=== PATIENT | female | born 1995 | race Caucasian/White ===

== ENCOUNTER 2016-11-24 23:26 | Emergency (ER) | payer BC, OTHER ==
[~2016-11-24] VITALS: Ht 170.2 cm; Wt 72.7 kg
[~2016-11-24 23:26] MED LIST: ATOM80CA PO; QUET100T PO; SERT100T5 PO; TRAZ50TA18 PO
[2016-11-25 05:26] VITALS: BP 105/66
== END 2016-11-25 05:33 | disposition home or self-care (01) ==
LOC: ED 23:59
DX: F10.129 Alcohol abuse with intoxication, unspecified (principal); G93.41 Metabolic encephalopathy
CPT/HCPCS: 36415; 80307; 99283; G0479